=== PATIENT | male | born 1985 | race Hispanic/Latino ===

== ENCOUNTER 2020-05-22 18:34 | Emergency (ER) | payer SELFPAY ==
--- NOTE | 2020-05-22 20:08 | CT ---
CT BRAIN 05/22/20 PROVIDED CLINICAL HISTORY: Trauma. The ventricular system appears normal in size and morphology. There is no evidence for intracranial h emorrhage or mass effect. The extracranial soft tissues and osseous structures demonstrate no acute a bnormality. IMPRESSION: No evidence for intracranial hemorrhage or mass effect. POS: CR
--- NOTE | 2020-05-22 20:10 | CT ---
CT CERVICAL SPINE: 05/22/20 PROVIDED CLINICAL HISTORY: Trauma. FINDINGS: There is no evidence for fracture or traumatic subluxation. No prevertebral soft tissue swelling appa rent. The visualized lung apices appear clear. IMPRESSION: No evidence for fracture or traumatic subluxation. POS: CR
--- NOTE | 2020-05-22 20:12 | RAD ---
LUMBAR SPINE RADIOGRAPHS THREE VIEWS: 05/22/20 PROVIDED CLINICAL HISTORY: Trauma. FINDINGS: Lumbar alignment appears normal. Vertebral body heights appear preserved. Bilateral L5 pars defects w ith minimal listhesis suspected. Pedicles appear intact. SI joints appear symmetric. IMPRESSION: 1. No radiographic evidence for an acute osseous abnormality. 2. Suspected bilateral L5 pars defects with minimal anterolisthesis of L5 on S1. POS: CR
== END 2020-05-22 20:40 ==
LOC: NAV ERS 18:34
DX: F10.129 Alcohol abuse with intoxication, unspecified (principal); M54.5 Low back pain; E11.9 Type 2 diabetes mellitus without complications; V43.92XA Unspecified car occupant injured in collision with other type car in traffic accident, initial encounter
CPT/HCPCS: 70450; 72100; 72125